=== PATIENT | male | born 1930 | race Caucasian/White ===

== ENCOUNTER 2017-08-03 11:24 | Inpatient (IN) | payer MEDICARE, BC, MEDICAID ==
[2017-08-03] MEDS: CEFEPIME 2GM/50 ML (PMX) 50 ML IVPB (12:00)
[2017-08-03] MEDS: ACETAMINOPHEN 650 MG SUPP PR (12:00)
[2017-08-03] MEDS: SODIUM CHLORIDE 0.9% 1L BAG IV* (12:01)
[2017-08-03 12:18] LABS: ADD MAN DIFF? NO
[2017-08-03 12:20] LABS: WHITE BLOOD COUNT 15.8 10^3/ul (4.8-10.8)
[2017-08-03 12:20] LABS: BASOPHILS % 0.1 % (0.0-2.0); HEMATOCRIT 36.2 % (42.0-52.0); LYMPHOCYTES # 2.1 10^3/ul (0.8-2.9); LYMPHOCYTES % 13.5 % (15.0-51.0); MEAN CORPUSCULAR HEMOGLOBIN 35.4 pg (29.0-33.0); MEAN CORPUSCULAR HGB CONC 35.9 g/dl (32.0-37.0); MEAN CORPUSCULAR VOLUME 98.6 fl (82.0-101.0); MONOCYTE # 1.2 10^3/ul (0.3-0.9); MONOCYTES % 7.3 % (0.0-11.0); NEUTROPHIL # 12.4 10^3/ul (1.6-7.5); NEUTROPHILS % 78.5 % (39.0-77.0); PLATELET COUNT 146 10^3/UL (140-415); RED BLOOD COUNT 3.67 10^6/ul (4.70-6.10); RED CELL DISTRIBUTION WIDTH 11.3 % (11.5-14.5)
[2017-08-03] MEDS: VANCOMYCIN 1 GM (PMX) 250 ML IVPB (12:21)
[2017-08-03 12:35] LABS: INR 1.11; PROTIME 14.5 Sec (11.9-14.9); PT RATIO 1.1
[2017-08-03 12:37] LABS: PARTIAL THROMBOPLASTIN TIME 40.3 Sec (25.0-35.0)
[2017-08-03 12:50] LABS: AADO2 Arterial 89.6 mmHg (7.0-24.0); Allen Test ACCEPTAB; Arterial Base Excess -0.5 mmol/L (-3.0-3); Arterial Blood Gas Oxygen Sat 94.7 mmHG (95.0-100.0); Arterial COHb 0.3 % (0.0-3.0); Arterial Fraction of Oxyhgb 94.1 % (93.0-99.0); Arterial HCO3 22.9 mmol/L (22.0-26.0); Arterial MetHb 0.3 % (0.0-1.5); Arterial Total Hemglobin 11.6 g/dl (12.0-18.0); Arterial pCO2 33.3 mmhg (35-45); MODE NASAL CANNULA; Site Right Radial
[2017-08-03 12:51] LABS: ALANINE AMINOTRANSFERASE 33 IU/L (13-69); ALBUMIN 4.3 g/dl (3.3-4.9); ALBUMIN/GLOBULIN RATIO 1.22; ALKALINE PHOSPHATASE 89 IU/L (42-121); ANION GAP 21 (8-16); ASPARTATE AMINO TRANSFERASE 37 IU/L (15-46); BILIRUBIN,INDIRECT 0.5 mg/dl (0-1.1); BILIRUBIN,TOTAL 0.5 mg/dl (0.2-1.3); BLOOD UREA NITROGEN 45 mg/dl (7-20); CALCIUM 9.5 mg/dl (8.4-10.2); CARBON DIOXIDE 24 mmol/L (21-31); CHLORIDE 100 mmol/L (97-110); CREATININE 2.44 mg/dl (0.61-1.24); GLUCOSE 135 mg/dl (70-220); POTASSIUM 4.3 mmol/L (3.5-5.1); SODIUM 141 mmol/L (135-144); TOTAL PROTEIN 7.8 g/dl (6.1-8.1)
[2017-08-03 13:05] LABS: LACTIC ACID 2.1 mmol/L (0.5-2.0)
[2017-08-03 13:05] LABS: TROPONIN-I 0.133 ng/ml (0.00-0.12)
[2017-08-03 13:49] LABS: ADD UMIC YES; UR ASCORBIC ACID NEGATIVE (NEGATIVE); UR BILIRUBIN (Dip) NEGATIVE (NEGATIVE); UR BLOOD (Dip) 2+ mg/dL (NEGATIVE); UR CLARITY SLIGHTLY CLOUDY (CLEAR); UR COLOR AMBER (YELLOW); UR GLUCOSE (Dip) NEGATIVE (NEGATIVE); UR KETONES (Dip) NEGATIVE (NEGATIVE); UR LEUKOCYTE ESTERASE (Dip) NEGATIVE Leu/ul (NEGATIVE); UR NITRITE (Dip) NEGATIVE (NEGATIVE); UR RBC 82 /HPF (0-5); UR SPECIFIC GRAVITY (Dip) 1.018 (1.003-1.030); UR TOTAL PROTEIN (Dip) 1+ mg/dl (NEGATIVE); UR UROBILINOGEN (Dip) 2+ mg/dL (NEGATIVE); UR WBC 2 /HPF (0-5)
[2017-08-03 13:53] LABS: LACTIC ACID 1.4 mmol/L (0.5-2.0)
[2017-08-03] MEDS ORDERED: ACETAMINOPHEN 325 MG TAB PO (14:00)
[2017-08-03] MEDS ORDERED: ONDANSETRON 4 MG INJ IV (14:00)
[2017-08-03] MEDS: LIDOCAINE 1% (MPF) 5 ML VIAL SC (14:30)
[2017-08-03] MEDS: CLINDAMYCIN 600 MG/D5W (PMX) 50 ML IVPB (14:55)
[2017-08-03] MEDS: ASPIRIN 300 MG SUPP PR (14:57)
[2017-08-03] MEDS ORDERED: AMPICILLIN/SULB 3 GM/NS (PMX) 100 ML IVPB (15:00)
[2017-08-03] MEDS ORDERED: morphine 2 MG INJ IV (15:00)
[2017-08-03] MEDS ORDERED: VANCOMYCIN IV PER PHARMACY XX (15:00)
[2017-08-03] MEDS ORDERED: ACETAMINOPHEN 650MG/20.3ML CUP PO (15:00)
[2017-08-03] MEDS ORDERED: HYDROCODONE/APAP (5/325) TAB PO (15:00)
[2017-08-03] MEDS: ENOXAPARIN 30 MG/0.3 ML SYG SC (15:04)
[2017-08-03 15:54] LABS: LACTIC ACID 1.3 mmol/L (0.5-2.0)
[2017-08-03] MEDS: metroNIDAZOLE 500 MG/NS (PMX) 100 ML IVPB ×2 (16:06→23:15)
[2017-08-03] MEDS: ALBUTEROL/IPRATROPIUM (NEB) 3 ML AMP NEB ×2 (17:48→20:33)
[2017-08-03] MEDS: INFLUENZA VIRUS VACCINE 0.5 ML (DISPENSING) IM* (18:15)
[2017-08-03 19:15] LABS: TROPONIN-I 0.106 ng/ml (0.00-0.12)
[2017-08-03] MEDS: MEMANTINE 10 MG TAB PO (21:00)
[2017-08-03] MEDS ORDERED: GABAPENTIN 400 MG CAP PO (21:00)
[2017-08-04] MEDS: ALBUTEROL/IPRATROPIUM (NEB) 3 ML AMP NEB ×6 (00:33→20:42)
[2017-08-04 01:11] LABS: TROPONIN-I 0.098 ng/ml (0.00-0.12)
[2017-08-04] MEDS: metroNIDAZOLE 500 MG/NS (PMX) 100 ML IVPB ×3 (06:16→23:08)
[2017-08-04 06:38] LABS: ADD MAN DIFF? NO
[2017-08-04 06:43] LABS: BASOPHILS % 0.1 % (0.0-2.0); HEMATOCRIT 32.2 % (42.0-52.0); HEMOGLOBIN 10.9 g/dl (14.0-18.0); LYMPHOCYTES # 2.3 10^3/ul (0.8-2.9); LYMPHOCYTES % 15.3 % (15.0-51.0); MEAN CORPUSCULAR HEMOGLOBIN 34.6 pg (29.0-33.0); MEAN CORPUSCULAR HGB CONC 33.9 g/dl (32.0-37.0); MEAN CORPUSCULAR VOLUME 102.2 fl (82.0-101.0); MEAN PLATELET VOLUME 10.7 fl (7.4-10.4); MONOCYTE # 0.8 10^3/ul (0.3-0.9); MONOCYTES % 5.2 % (0.0-11.0); NEUTROPHILS % 78.8 % (39.0-77.0); PLATELET COUNT 122 10^3/UL (140-415); RED BLOOD COUNT 3.15 10^6/ul (4.70-6.10); RED CELL DISTRIBUTION WIDTH 11.9 % (11.5-14.5)
[2017-08-04 06:43] LABS: WHITE BLOOD COUNT 15.3 10^3/ul (4.8-10.8)
[2017-08-04 07:52] LABS: ANION GAP 16 (8-16); BLOOD UREA NITROGEN 31 mg/dl (7-20); CALCIUM 8.4 mg/dl (8.4-10.2); CARBON DIOXIDE 25 mmol/L (21-31); CHLORIDE 107 mmol/L (97-110); CREATININE 1.48 mg/dl (0.61-1.24); GLUCOSE 126 mg/dl (70-220); MAGNESIUM 1.9 mg/dl (1.7-2.5); POTASSIUM 3.5 mmol/L (3.5-5.1); SODIUM 144 mmol/L (135-144)
[2017-08-04] MEDS ORDERED: NON-FORMULARY/PATIENT OWN MED (Memantine HCl/Donepezil HCl (Namzaric 28 mg-10 mg Capsule) PO (09:00)
[2017-08-04] MEDS: VANCOMYCIN 1 GM 250 ML IVPB (09:34)
[2017-08-04] MEDS: ENOXAPARIN 30 MG/0.3 ML SYG SC (09:48)
[2017-08-04] MEDS: DONEPEZIL 10 MG TAB PO (09:49)
[2017-08-04] MEDS: ASPIRIN (EC) 81 MG TAB PO (09:49)
[2017-08-04] MEDS: MEMANTINE 10 MG TAB PO ×2 (09:50→21:46)
[2017-08-04] MEDS: CEFEPIME 1GM/50 ML (PMX) 50 ML IVPB (12:15)
[2017-08-04] MEDS: SOD CHLORIDE 0.45% 1,000 ML IV (14:21)
[2017-08-04 14:25] LABS: HEMATOCRIT 31.4 % (42.0-52.0); HEMOGLOBIN 10.9 g/dl (14.0-18.0)
[2017-08-04] MEDS ORDERED: HEPARIN 5,000 UNIT/0.5 ML VIAL SC (21:00)
[2017-08-05] MEDS: ALBUTEROL/IPRATROPIUM (NEB) 3 ML AMP NEB ×6 (02:01→21:31)
[2017-08-05] MEDS: SOD CHLORIDE 0.45% 1,000 ML IV ×2 (02:41→21:20)
[2017-08-05] MEDS: metroNIDAZOLE 500 MG/NS (PMX) 100 ML IVPB (06:39)
[2017-08-05 08:54] LABS: ADD MAN DIFF? NO
[2017-08-05] MEDS: DONEPEZIL 10 MG TAB PO (08:56)
[2017-08-05] MEDS: MEMANTINE 10 MG TAB PO ×2 (08:56→21:20)
[2017-08-05] MEDS: ASPIRIN (EC) 81 MG TAB PO (08:57)
[2017-08-05] MEDS: BALSAM PERU/CASTOR OIL 60 GM TUBE TOP (08:57)
[2017-08-05] MEDS: VANCOMYCIN 750 MG in DEXTROSE 5% 150 ML IVPB (08:57)
[2017-08-05 09:02] LABS: BASOPHILS % 0.1 % (0.0-2.0); EOSINOPHILS % 0.1 % (0.0-7.0); HEMATOCRIT 29.5 % (42.0-52.0); HEMOGLOBIN 10.2 g/dl (14.0-18.0); LYMPHOCYTES # 1.1 10^3/ul (0.8-2.9); LYMPHOCYTES % 13.9 % (15.0-51.0); MEAN CORPUSCULAR HEMOGLOBIN 34.8 pg (29.0-33.0); MEAN CORPUSCULAR HGB CONC 34.6 g/dl (32.0-37.0); MEAN CORPUSCULAR VOLUME 100.7 fl (82.0-101.0); MEAN PLATELET VOLUME 10.3 fl (7.4-10.4); MONOCYTE # 0.5 10^3/ul (0.3-0.9); MONOCYTES % 5.9 % (0.0-11.0); NEUTROPHIL # 6.3 10^3/ul (1.6-7.5); NEUTROPHILS % 79.2 % (39.0-77.0); PLATELET COUNT 123 10^3/UL (140-415); RED BLOOD COUNT 2.93 10^6/ul (4.70-6.10); RED CELL DISTRIBUTION WIDTH 11.7 % (11.5-14.5)
[2017-08-05 09:33] LABS: ANION GAP 15 (8-16); BLOOD UREA NITROGEN 18 mg/dl (7-20); CALCIUM 8.3 mg/dl (8.4-10.2); CARBON DIOXIDE 26 mmol/L (21-31); CHLORIDE 103 mmol/L (97-110); CREATININE 0.97 mg/dl (0.61-1.24); GLUCOSE 127 mg/dl (70-220); POTASSIUM 3.6 mmol/L (3.5-5.1); SODIUM 140 mmol/L (135-144)
[2017-08-05 09:35] LABS: CREATININE 0.97 mg/dl (0.61-1.24)
[2017-08-05 09:35] LABS: BLOOD UREA NITROGEN 18 mg/dl (7-20)
[2017-08-06] MEDS: ALBUTEROL/IPRATROPIUM (NEB) 3 ML AMP NEB ×4 (00:50→12:04)
[2017-08-06] MEDS: SOD CHLORIDE 0.45% 1,000 ML IV (04:34)
[2017-08-06] MEDS: LEVOFLOXACIN 750 MG TABLET PO (06:15)
[2017-08-06 08:12] LABS: ADD MAN DIFF? NO
[2017-08-06 08:15] LABS: BASOPHILS % 0.3 % (0.0-2.0); HEMATOCRIT 30.3 % (42.0-52.0); HEMOGLOBIN 10.6 g/dl (14.0-18.0); LYMPHOCYTES # 1.1 10^3/ul (0.8-2.9); LYMPHOCYTES % 17.9 % (15.0-51.0); MEAN PLATELET VOLUME 10.3 fl (7.4-10.4); MONOCYTE # 0.5 10^3/ul (0.3-0.9); MONOCYTES % 8.3 % (0.0-11.0); NEUTROPHIL # 4.4 10^3/ul (1.6-7.5); NEUTROPHILS % 72.8 % (39.0-77.0); PLATELET COUNT 162 10^3/UL (140-415); RED BLOOD COUNT 3.03 10^6/ul (4.70-6.10); RED CELL DISTRIBUTION WIDTH 11.6 % (11.5-14.5)
[2017-08-06 08:44] LABS: ANION GAP 15 (8-16); BLOOD UREA NITROGEN 15 mg/dl (7-20); CALCIUM 8.7 mg/dl (8.4-10.2); CARBON DIOXIDE 26 mmol/L (21-31); CHLORIDE 104 mmol/L (97-110); CREATININE 0.92 mg/dl (0.61-1.24); GLUCOSE 109 mg/dl (70-220); POTASSIUM 3.7 mmol/L (3.5-5.1); SODIUM 141 mmol/L (135-144)
[2017-08-06] MEDS: DONEPEZIL 10 MG TAB PO (08:58)
[2017-08-06] MEDS: MEMANTINE 10 MG TAB PO (08:59)
[2017-08-06] MEDS: ASPIRIN (EC) 81 MG TAB PO (08:59)
[2017-08-06] MEDS: BALSAM PERU/CASTOR OIL 60 GM TUBE TOP (08:59)
== END 2017-08-06 15:50 | disposition home health service (06) | DRG 871 ==
LOC: E/R 11:24 → TEL 08-05 21:01
DX: A41.9 Sepsis, unspecified organism (principal); R65.21 Severe sepsis with septic shock; J69.0 Pneumonitis due to inhalation of food and vomit; N17.9 Acute kidney failure, unspecified; Z85.46 Personal history of malignant neoplasm of prostate; I10 Essential (primary) hypertension; G30.9 Alzheimer's disease, unspecified; F02.80 Dementia in other diseases classified elsewhere, unspecified severity, without behavioral disturbance, psychotic disturbance, mood disturbance, and anxiety; E78.5 Hyperlipidemia, unspecified; E78.00 Pure hypercholesterolemia, unspecified; R09.02 Hypoxemia
CPT/HCPCS: 36415; 36600; 70450; 71045; 80048; 80053; 81001; 82565; 82803; 82962; 83605; 83735; 84100; 84484; 84520; 85014; 85018; 85025; 85610; 85730; 86403; 87040; 87070; 87081; 87086; 87400; 92610; 93005; 93306; 94640; 96365; 96372; 96375; 97162; 99291-25